=== PATIENT | female | born 1985 | race Caucasian/White ===

== ENCOUNTER 2018-02-15 12:35 | Inpatient (IN) ==
--- NOTE | 2018-02-15 13:14 | OB/GYN History & Physical ---
Date of Encounter: 02/15/18 Time of Encounter: 13:09 Assessment and Plan (1) 38 weeks gestation of Current visit: Yes Status: Acute Admit to L&D for IOL Cytotec 50mcg po CEFM GBS- Pain management plan: epidural LR at 125 ml/hr Dr. Schmitz is OB content manager and is available as needed. (2) Pre-eclampsia during in third trimester, antepartum Current visit: Yes Status: Acute Treat prn for bp>160/>110 History of Present Illness Chief complaint: elevated bp HPI: Ms. Hammond is a 32 year old female at 38 weeks 1 day gestation with an estimated date of of 02/28/18 dated by initial exam. She presents from the office with complaints of elevated blood pressures for the last 3 days. She states while at the [facility] office they noted her blood pressure was elevated in the 150s over 90s. Recommended that she begin to track her blood pressure at home. She did so over the next 3 days and has blood pressures as high as 150s over 110s. She denies headache, blurry vision, epigastric pain. She endorses good movement and denies contractions, leakage of fluid, vaginal bleeding. Her has been uncomplicated. She has been followed by the midwives. records are available electronically and have been reviewed. Labs: O- GBS- HIV- Hep B- GC/CL- T. Palladium- Rubella immune Varicella immune Past Med Surg Social Fam HX - Family History Father Living Status: Still Living Hx Family Cardiac Disorders: Yes (HTN) Obstetrical History - Pregnancies : 1 Para: 0 Term: 0 : 0 Ab's: 0 Livin Medications and Allergies Loratadine [Claritin] 10 mg PO 02/15/18 [History] One Daily Tablet 1 tab PO DAILY 02/15/18 [History] Zyrtec 1 tab PO DAILY 02/15/18 [History] 3 Allergy/AdvReac Type Severity Reaction Status Date / Time Amoxicillin Allergy Rash Verified 02/15/18 13:29 cephalexin [From Keflex] Allergy Difficulty Verified 02/15/18 13:29 Breathing Review of System OB All systems PM: reviewed and no additional remarkable complaints except as stated - Genitourinary Genitourinary: as per HPI - Integumentary Integumentary: as per HPI Exam - Constitutional Constitutional: well developed, well nourished, no acute distress, average body habitus - HEENT HEENT: PERRL, Normocephaly, Mucus Membranes Moist - Neck Neck exam: full ROM, normal inspection - Lungs Respiratory exam: CTAB - Cardiovascular Cardiovascular exam: RRR, +S1, +S2 - Breasts Breast: bilateral: normal - Abdomen Abdomen: Present: bowel sounds normal, gravid, non tender - Extremities Extremities exam: normal capillary refill, normal inspection, pedal edema, radial pulses palpable and symmetrical Deep Tendon Reflex Grade: 2+ Normal (DTR WNL/+2 beats clonus on left and +3 clonus on right) - Vulva Vulva: bilateral: normal - Uterus Uterus exam: Present: normal size, normal contour - Anus/Rectum Anus/Rectum: Present: normal perianal skin Results Result Diagrams: 02/15/18 13:15 02/15/18 13:15 All other labs normal. - VTE Reasons for not Prescribing Prophylaxis: Treatment not Indicated - Low risk for VTE
[2018-02-15 13:51] LABS: Basophils # 0.1 K/mcL (0.0-0.2); Basophils % 0.9 %; Eosinophils # 0.2 K/mcL (0.0-0.6); Eosinophils % 2.7 %; Hematocrit 40.1 % (35.3-44.9); Hemoglobin 14.1 g/dL (11.5-15.4); Immature Granulocytes % 0.9 % (0-4); Lymphocytes # 1.1 K/mcL (0.6-4.6); Lymphocytes % 15.5 %; Mean Corpuscular HGB Conc 35.2 g/dL (31.6-35.5); Mean Corpuscular Hemoglobin 30.7 pg (28.0-33.3); Mean Corpuscular Volume 87.2 fL (83.0-100.0); Mean Platelet Volume 12.9 fL (9.4-12.4); Monocytes # 0.8 K/mcL (0.0-1.3); Monocytes % 11.1 %; Neutrophils # 4.8 K/mcL (1.6-8.9); Platelet Count 143 K/mcL (140-400); Red Cell Distribution Width 13.3 % (11.5-14.5); Segmented Neutrophils % 68.9 %
[2018-02-15 14:01] LABS: Alanine Aminotransferase 14 Units/L (7-52); Aspartate Amino Transferase 20 Units/L (13-39); BUN/Creatinine Ratio 13 (6-26); Blood Urea Nitrogen 9 mg/dL (6-20); Lactate Dehydrogenase 155 Units/L (140-271); Uric Acid 8.7 mg/dL (2.3-7.6); eGFR For African Americans > 60 (> 60); eGFR For Non-African Americans > 60 (> 60)
[2018-02-15 14:44] LABS: Amphetamine Screen,Urine Negative ng/mL (Cutoff=1000); Barbiturate Screen,Urine Negative ng/mL (Cutoff=200); Benzodiazepines Screen,Urine Negative ng/mL (Cutoff=200); Cannabinoid Screen,Urine Negative ng/mL (Cutoff = 50); Cocaine Screen,Urine Negative ng/mL (Cutoff= 300); Opiate Screen,Urine Negative ng/mL (Cutoff=300); Phencyclidine Screen,Urine Negative ng/mL (Cutoff=25)
[2018-02-15 15:10] LABS: Protein/Creatinine Ratio,Urine 4.37 mg/mg (0.00-0.20)
[2018-02-15] MEDS ORDERED: miSOPROStol 25 MCG TABLET VG PRN (15:20)
[2018-02-15] MEDS ORDERED: Ondansetron 4 MG/2 ML VIAL IVP PRN (15:25)
[2018-02-15] MEDS ORDERED: Lidocaine 1% 20 ML MDV INFILT PRN (15:25)
[2018-02-15] MEDS ORDERED: Famotidine 20 MG/2 ML VIAL IVP PRN (15:25)
[2018-02-15] MEDS ORDERED: Metoclopramide 10 MG/2 ML VIAL IVP PRN (15:25)
[2018-02-15] MEDS ORDERED: Naloxone 0.4 MG/ML INJ IVP PRN (15:25)
[2018-02-15] MEDS ORDERED: *HR* Nalbuphine 10 MG/ML AMPUL IVP PRN (15:25)
[2018-02-15] MEDS ORDERED: *HR* Labetalol 20 MG/4 ML SYRINGE IVP ONE (16:00)
--- NOTE | 2018-02-15 20:23 | OB Labor Progress Note ---
Date of Encounter: 02/15/18 Time of Encounter: 20:20 Labor Progress Note - Subjective Subjective: Pt states she is feeling a few contractions here and there. - Cervix Cervix: FT/80/-2 - Heart Tones Heart Tones: Baseline 145 Moderate variability Accelerations present 15x15 No decelerations FHR Category I - [place]: Contractions every 2-3 minutes and palpate mild - Interventions Interventions: SVE Cuevas bulb Cytotec po x 1 - Plan Plan: Continue induction management May have nubain or epidural on request Frequent position changes Check cuevas bulb hourly Dr. Schmitz aware of POC and agrees
[2018-02-15] MEDS ORDERED: miSOPROStol 100 MCG TABLET PO ONE (20:37)
[2018-02-16] MEDS: Ringers Solution, Lactated 1,000 ML IVC SCH ×4 (02:43→20:00)
[2018-02-16] MEDS: Oxytocin 20 units/ LR 1000 mL 20 UNIT/1,000 ML BAG IVC SCH (02:45)
--- NOTE | 2018-02-16 05:07 | OB Labor Progress Note ---
Date of Encounter: 02/16/18 Time of Encounter: 05:05 Labor Progress Note - Subjective Subjective: Patient reports she is feeling some contractions now. Rates them at 3-4 out of 10 - Cervix Cervix: Espinoza bulb still in place - Heart Tones Heart Tones: Baseline 130 Moderate variability Accelerations present 15 x 15 No decelerations FHR category I - [place]: Contractions every 2 to 3-1/2 minutes and palpate mild to moderate - Interventions Interventions: Pulled on Espinoza bulb - Plan Plan: Continue induction management Frequent position changes Increase Pitocin Anticipate vaginal delivery
--- NOTE | 2018-02-16 08:01 | OB Labor Progress Note ---
Date of Encounter: 02/16/18 Time of Encounter: 07:59 Labor Progress Note - Subjective Subjective: Patient sitting up in bed. Denies any pain at this time. - Heart Tones Heart Tones: 125 bpm moderate variability +15x15 accels no decels noted. Cat. 1 tracing. - [place]: 1.5-3 min apart - Interventions Interventions: Discussed POC with patient. - Plan Plan: Continue labor management anticipate SVE
--- NOTE | 2018-02-16 09:58 | OB Labor Progress Note ---
Date of Encounter: 02/16/18 Time of Encounter: 09:55 Labor Progress Note - Subjective Subjective: Patient reports contractions are getting stronger. Discussed POC with patient. Patient denies any questions or concerns. - Cervix Cervix: 6/80/-2 - Heart Tones Heart Tones: 125 bpm moderate variability +15x15 accels no decels noted. Cat. 1 tracing - [place]: 2-3 min apart - Interventions Interventions: SVE, AROM large amount of clear fluid. IUPC placed without difficulty. Patient tolerated well. - Plan Plan: Continue labor management Epidural for pain management when desires anticipate
[2018-02-16] MEDS ORDERED: Naloxone 0.4 MG/ML INJ IVP PRN (10:21)
[2018-02-16] MEDS ORDERED: EPHEDrine 50 MG/ML VIAL IVP PRN (10:21)
[2018-02-16] MEDS ORDERED: Ondansetron 4 MG/2 ML VIAL IVP PRN (10:21)
[2018-02-16] MEDS ORDERED: *HR* FentaNYL (PF) 100 MCG/2 ML VIAL EP ONE (10:21)
[2018-02-16] MEDS ORDERED: Bupivacaine-MPF 0.25% 10 ML VIAL EP ONE (10:21)
[2018-02-16] MEDS ORDERED: Epidural Premix (fent/bupiv) 110 ML EP ONE (10:26)
[2018-02-16] MEDS ORDERED: Bupivacaine-MPF 0.25% 10 ML VIAL ONE (10:28)
[2018-02-16] MEDS ORDERED: Lidocaine -MPF 1% 5 ML AMPUL ONE (10:28)
[2018-02-16] MEDS ORDERED: *HR* FentaNYL (PF) 100 MCG/2 ML VIAL ONE (10:29)
[2018-02-16] MEDS ORDERED: Epidural Premix (fent/bupiv) 110 ML EP SCH (10:30)
--- NOTE | 2018-02-16 11:28 | Anesthesia Evaluation PreOp ---
Date of Encounter: 02/16/18 Time of Encounter: 10:35 - Past History Planned Operation: FRANCISCO JAVIER Cardiac History: Other ( induced hypertension) Pulmonary History: Denies Any Significant HX FOUNDER History: Denies Any Significant HX Other Medical History: Other (seasonal allergies) Anesthesia History: No Prior Anesthetic Complications, Past Anesthesia (No past anesthesia experiences, no family anesthesthetic related deaths) : Yes Alcohol Use: none Drug use: none Medications and Allergies Loratadine [Claritin] 10 mg PO 02/15/18 [History] One Daily Tablet 1 tab PO DAILY 02/15/18 [History] Zyrtec 1 tab PO DAILY 02/15/18 [History] 3 Allergy/AdvReac Type Severity Reaction Status Date / Time Amoxicillin Allergy Rash Verified 02/15/18 13:29 cephalexin [From Keflex] Allergy Difficulty Verified 02/15/18 13:29 Breathing - Meds/Allergy Pre-op Review Medications Reviewed: Yes Allergies Reviewed: Yes Beta Blockers on Current Med List: No If Beta Blockers taken, Date/Time (Last Dose taken): 02/15 1641 Anesthesia Results - Labs 02/15/18 13:15 02/15/18 13:15 Anesthesia Exam BP 160/91 R 18 P 88 T 97.5 Height: 5'9" Weight: 117.6kg NPO (# of Hours): over 24 hrs solids, clears 2hrs Pain Scale: 4 Pain Scale Used: Numeric (1 - 10) - HEENT Pupil (Motor): Pupils equal Mallampati: II Teeth: Normal Oral Opening: Greater than 3 - FOUNDER LOC: Oriented FOUNDER Motor: Normal RUE, Normal LUE, Normal RLE, Normal LLE, Normal Face FOUNDER Sensory: Normal: RUE, LUE, RLE, LLE, Face - Cardiac Rhythm: Regular Murmur: None JVD: No Carotid Bruit: No - Pulmonary Breath Sounds: bilateral Clear Respiratory Effort: Symmetrical Anesthesia Assess/Plan ASA Score: 2 Modified [place] Scale for Level of Consciousness: Cooperative, oriented, and tranquil Anesthetic Plan: Regional Autologous Blood: No Monitoring Plan: Standard Monitors Recovery Plan: Other
--- NOTE | 2018-02-16 11:33 | Anesthesia Procedures ---
Date of Encounter: 02/16/18 Time of Encounter: 10:35 Procedures: Anesthesia - Epidural/Spinal Patient ID/Chart reviewed: Yes Patient examined: Yes OB Eval: : 1 OB Eval: Hx Para: 0 OB Eval: Dilated at (cm): 6 OB Eval: Contractions: Non-stressed pattern Consent Obtained: Yes Supplemental Oxygen: None/Room Air Site Prep: Aseptic Technique, Sterile prep and drape, Povidone-Iodine 1% Patient position: upright Local Anesthetic: Lidocaine 1% Amount of Local Anesthetic used: 3 Touhy Needle Gauge: 18 Touhy Needle Depth (cm): 6 Catheter Depth at Skin (cm): 15 Test Dose (1.5% Lido + Epi): Volume given (mls): 3 Test Dose Result: Negative Loading Dose: 0.25% Marcaine (mls): 10 Loading Dose: Fentanyl (mcg): 100 Loading Dose Administered: Thru Catheter Infusion Med: 0.125% Bupivacaine w/ 2 mcg/ml Fentanyl Infusion Rate (mls/hr): [address]: Tegaderm, Tape Interspace Used: L4-L5 Blood: No CSF: No Paresthesia: No Procedure: FRANCISCO JAVIER placed 2nd pass successfully without any immediate noted complications. VSS and FHT stable throughout. Vitals + FHT's: 1035 BP 160/91 P 88 R 18 1120 BP 142/83 P 82 R 16 FHT 130s
--- NOTE | 2018-02-16 13:28 | OB Labor Progress Note ---
Date of Encounter: 02/16/18 Time of Encounter: 13:26 Labor Progress Note - Subjective Subjective: Patient resting comfortably with epidural in place. Espinoza catheter draining clear yellow urine. - Cervix Cervix: 6/80/-1 - Heart Tones Heart Tones: 140 bpm moderate amount of variability +15x15 accels no decels noted. Cat. 1 tracing - [place]: 2-3 min apart - Interventions Interventions: SVE, new IUPC placed without difficulty due to other not reading appropriately. - Plan Plan: Continue labor management
[2018-02-17] MEDS: Oxytocin 20 units/ LR 1000 mL 20 UNIT/1,000 ML BAG IVC SCH (04:33)
[2018-02-17] MEDS ORDERED: Clindamycin 900 MG/50 ML 900 MG/50 ML IV.SOLN IVPB SCH (08:00)
--- NOTE | 2018-02-17 09:41 | OB Labor Progress Note ---
Date of Encounter: 02/17/18 Time of Encounter: 09:39 Labor Progress Note - Subjective Subjective: Sitting in high fowlers. Patient states that she is comfortable - Vital Signs Vital Signs: VSS - Cervix Cervix: 8-9/100/+1 - Heart Tones Heart Tones: 140 - [place]: Contractions every 3-4 minutes - Plan Plan: Continue routine labor management GBS negative Ruptured > 24 hours, ABX started on previous shift Continue pitocin Anticipate vaginal delivery POC discussed with patient and Dr Schmitz at the same time.
[2018-02-17] MEDS ORDERED: *HR* Labetalol 20 MG/4 ML SYRINGE IVP ONE ×2 (10:53→11:01)
--- NOTE | 2018-02-17 14:02 | OB/GYN Procedure Note ---
Delivery - Delivery Date: 02/17/18 Provider: Jarrod Schmitz Intrapartum events: none Delivery induction: oxytocin, cuevas, misoprostol Delivery monitor: external FHT, internal uterine Anesthesia: epidural Quantitated Blood Loss: 250 - (s) Infant A Infant Delivery Date: 02/17/18 Infant Delivery Time: 13:37 Presentation: vertex Position: OA Route of delivery: Gender: Female Viability: Viable Pounds: 9 Ounces: 1 at 1 minute: 8 at 5 mins: 9 Shoulder Dystocia: encountered Shoulder Dystocia Maneuvers: Candace maneuver (6 sec shoulder dystocia encounterd relieved by downward traction and Candace maneuver) Specimens collected: cord blood Placenta: spontaneous Cord: nuchal cord, 3 umbilical vessels - Complications Delivery complications: none Delivery comments: Pt s/p of liveborn female with tight Nuchal cord x 1. was delivered through the cord, encountering a 6 sec dystocia relieved with downward traction and Candace presentation. was delivered from OA presentation. We had spontaneous delivery of normal intact placenta with 3 VC. 2nd degree laceration repaired with 3-0 Vicryl under epidural anesthesia. EBL 250 cc. Mother and infant recovered in LDR. - Disposition Mom disposition: stable in LDR Sparkman disposition: stable in LDR
[2018-02-17] MEDS ORDERED: Oxytocin 20 units/ LR 1000 mL 20 UNIT/1,000 ML BAG IVC ONE (16:29)
[2018-02-17] MEDS ORDERED: Oxytocin 20 units/ LR 1000 mL 20 UNIT/1,000 ML BAG IVC SCH (16:29)
[2018-02-17] MEDS ORDERED: Acetaminophen 325 MG TABLET PO PRN (16:29)
[2018-02-17] MEDS ORDERED: Measles/Mumps/Rubella Vacc 0.5 ML VIAL SQ PRN (16:29)
[2018-02-17] MEDS ORDERED: Sennosides 8.6 MG TABLET PO PRN (16:29)
[2018-02-17] MEDS ORDERED: Benzocaine/Menthol 56 GM AEROSOL SPRAY TP PRN (16:29)
[2018-02-17] MEDS ORDERED: Rho Immune Globulin 1,500 UNIT SYRINGE IM PRN (16:29)
[2018-02-17] MEDS ORDERED: NIFEdipine 10 MG CAPSULE PO ONE (18:41)
[2018-02-18 06:27] LABS: Basophils # 0.1 K/mcL (0.0-0.2); Basophils % 0.4 %; Eosinophils # 0.3 K/mcL (0.0-0.6); Eosinophils % 1.5 %; Hematocrit 32.7 % (35.3-44.9); Lymphocytes % 10.9 %; Mean Corpuscular HGB Conc 35.5 g/dL (31.6-35.5); Mean Corpuscular Hemoglobin 31.2 pg (28.0-33.3); Mean Corpuscular Volume 87.9 fL (83.0-100.0); Mean Platelet Volume 11.9 fL (9.4-12.4); Monocytes # 0.9 K/mcL (0.0-1.3); Monocytes % 4.7 %; Platelet Count 160 K/mcL (140-400); Red Blood Count 3.72 M/mcL (3.82-4.97); Red Cell Distribution Width 13.5 % (11.5-14.5); Segmented Neutrophils % 81.5 %
[2018-02-18 06:28] LABS: Hemoglobin 11.6 g/dL (11.5-15.4)
[2018-02-18 06:45] LABS: Alanine Aminotransferase 18 Units/L (7-52); Aspartate Amino Transferase 37 Units/L (13-39); BUN/Creatinine Ratio 14 (6-26); Blood Urea Nitrogen 13 mg/dL (6-20); Lactate Dehydrogenase 229 Units/L (140-271); Uric Acid 10.7 mg/dL (2.3-7.6); eGFR For African Americans > 60 (> 60); eGFR For Non-African Americans > 60 (> 60)
[2018-02-18] MEDS: Prenatal Vit/FA 1 EACH TABLET PO SCH (09:00)
[2018-02-18] MEDS: Ibuprofen 600 MG TABLET PO PRN ×2 (09:00→20:31)
--- NOTE | 2018-02-18 10:48 | OB/GYN Progress Note ---
Date of Encounter: 02/18/18 Time of Encounter: 10:46 - Assessment and Plan (1) Vaginal delivery Current Visit: Yes Status: Acute Continue routine care Ice to perineum as needed Sitz bath as needed dermoplast to perineum as needed Anticipate discharge to home tomorrow (2) Pre-eclampsia, Current Visit: Yes Status: Acute Increase labetalol to 200 mg twice a day PIH labs in the morning (3) Breast feeding status of mother Current Visit: Yes Status: Acute oim consultant as needed Subjective - Subjective Principal diagnosis: s/p Interval history: Feeling well. Out of bed without dizziness. Some perineal discomfort-using ice pack. Cramping minimal, using ibuprofen. Breast-feeding every 2-3 hours and feels is going well. Some nipple soreness. Voiding without difficulty. Passing flatus, no BM yet. Tolerating regular diet. Agreeable to stay another night for blood pressure regulation. Patient reports: appetite normal, voiding normally, pain well controlled, ambulating normally [place]: doing well, nursing well Objective - Latest Vital Signs Latest vital signs: Vital Signs Temp Pulse Resp BP Pulse Ox 02/18/18 08:16 16 02/18/18 05:18 98.1 F 82 16 142/87 97 02/18/18 00:17 98.0 F 92 18 114/72 97 02/17/18 21:07 98.1 F 93 16 149/93 97 02/17/18 19:19 85 144/91 02/17/18 19:02 97.9 F 87 12 143/92 97 02/17/18 18:41 98.0 F 92 18 182/123 98 02/17/18 17:45 98.1 F 88 12 155/95 99 02/17/18 16:45 98.3 F 83 14 165/105 96 Intake and Output 02/17/18 02/18/18 02/18/18 23:59 07:59 15:59 Intake Total 350 / 350 0 / 0 Output Total 675 / 675 250 / 250 Balance -325 / -325 -250 / -250 Intake: Oral 350 / 350 0 / 0 Output: Urine 675 / 675 250 / 250 Other: Meal Dinner Percent of Meal Consumed 80% Weight 118.8 kg 53.161 kg 115.3 kg Patient Weight 02/18/18 23:59 Weight 115.3 kg - Exam Lungs: bilateral: normal Chest: Normal S1, Normal S2 Extremities: Present: normal Abdomen: Present: normal appearance, soft Uterus: Present: normal, firm Uterus Position: At Umbilicus, Midline Comments: Breasts: Soft, nontender. Nipples intact without erythema. - Labs Labs: Laboratory Results - last 24 hr 02/17/18 02/18/18 02/18/18 14:18 06:16 06:16 WBC 18.4 H D RBC 3.72 L Hgb 11.6 D Hct 32.7 L MCV 87.9 MCH 31.2 MCHC 35.5 RDW 13.5 Plt Count 160 MPV 11.9 Immature Gran % 1.0 Seg Neutrophils % 81.5 Lymphocytes % 10.9 Monocytes % 4.7 Eosinophils % 1.5 Basophils % 0.4 Neutrophils # 15.0 H Lymphocytes # 2.0 Monocytes # 0.9 Eosinophils # 0.3 Basophils # 0.1 BUN 13 Creatinine 0.94 Est GFR ( Amer) > 60 Est GFR (Non-Af Amer) > 60 BUN/Creatinine Ratio 14 Uric Acid 10.7 H AST 37 ALT 18 Lactate Dehydrogenase 229 Screen NEGATIVE Baby's Blood Type A RH POSITIVE Mother's Blood Type O RH NEGATIVE Rhogam Indicated YES Rhogam Req for Mother 1
[2018-02-19 07:57] VITALS: BP 124/85
[2018-02-19] MEDS: Ibuprofen 600 MG TABLET PO PRN (08:07)
[2018-02-19] MEDS: Prenatal Vit/FA 1 EACH TABLET PO SCH (08:08)
[2018-02-19 08:43] LABS: Alanine Aminotransferase 18 Units/L (7-52); Aspartate Amino Transferase 30 Units/L (13-39); BUN/Creatinine Ratio 14 (6-26); Blood Urea Nitrogen 9 mg/dL (6-20); Lactate Dehydrogenase 207 Units/L (140-271); Uric Acid 10.3 mg/dL (2.3-7.6); eGFR For African Americans > 60 (> 60); eGFR For Non-African Americans > 60 (> 60)
--- NOTE | 2018-02-19 09:29 | Discharge Summary ---
Date of Encounter: 02/19/18 Time of Encounter: 09:26 - Discharge Diagnosis (1) Vaginal delivery Priority: Primary Status: Acute Comments: Doing well. Ambulating and voiding without difficulty. Tolerating regular diet well. Denies MYRICK, visual disturbance and epigastric pain. Lochia light and without clots. Mild abdominal cramping well controlled with Ibuprofen. Father of baby at bedside holding infant. States baby formula feeding well. Patient desires to go home today. (2) Pre-eclampsia, Priority: Secondary Status: Acute - Discharge Medications Prescriptions: Ibuprofen [Motrin] 600 mg PO Q6HR PRN #30 tablet PRN Reason: Cramping Breast Pump [BREAST PUMP] 1 each .ROUTE AD #1 each Docusate [Colace] 100 mg PO BID #20 capsule Labetalol [Trandate] 200 mg PO BID 30 Days #60 tablet Home Medications: Loratadine [Claritin] 10 mg PO 02/15/18 [History] One Daily Tablet 1 tab PO DAILY 02/15/18 [History] Zyrtec 1 tab PO DAILY 02/15/18 [History] Acetaminophen [Tylenol] 650 mg PO Q6HR PRN tablet 02/19/18 [Rx] Benzocaine/Menthol [place] [Dermoplast [place]] 1 appl TP QID PRN aerosol 02/19/18 [Rx] Breast Pump [BREAST PUMP] 1 each .ROUTE AD #1 each 02/19/18 [Rx] Docusate [Colace] 100 mg PO BID #20 capsule 02/19/18 [Rx] Ibuprofen [Motrin] 600 mg PO Q6HR PRN #30 tablet 02/19/18 [Rx] Labetalol [Trandate] 200 mg PO BID 30 Days #60 tablet 02/19/18 [Rx] Vit/FA 1 each PO DAILY tablet 02/19/18 [Rx] Allergies/Adverse Reactions: 3 Allergy/AdvReac Type Severity Reaction Status Date / Time Amoxicillin Allergy Rash Verified 02/15/18 13:29 cephalexin [From Keflex] Allergy Difficulty Verified 02/15/18 13:29 Breathing Data Procedures and tests throughout hospitalization: Laboratory Tests 02/15/18 02/15/18 02/15/18 13:15 13:15 13:15 WBC 6.9 RBC 4.60 Hgb 14.1 Hct 40.1 MCV 87.2 MCH 30.7 MCHC 35.2 RDW 13.3 Plt Count 143 MPV 12.9 H Immature Gran % 0.9 Seg Neutrophils % 68.9 Lymphocytes % 15.5 Monocytes % 11.1 Eosinophils % 2.7 Basophils % 0.9 Neutrophils # 4.8 Lymphocytes # 1.1 Monocytes # 0.8 Eosinophils # 0.2 Basophils # 0.1 BUN Creatinine Est GFR ( Amer) Est GFR (Non-Af Amer) BUN/Creatinine Ratio Uric Acid AST ALT Lactate Dehydrogenase Urine Creatinine 243 Protein/Creatinin Ratio 4.37 H Urine Total Protein 1061 H Urine Opiates Screen Negative Ur Barbiturates Screen Negative Ur Phencyclidine Scrn Negative Ur Amphetamines Screen Negative U Benzodiazepines Scrn Negative Urine Cocaine Screen Negative U Marijuana (THC) Screen Negative Ur Drug Screen Interp See Below Specimen Rejected Screen Baby's Blood Type Mother's Blood Type Rhogam Indicated Rhogam Req for Mother 02/15/18 02/17/18 02/18/18 13:15 14:18 06:16 WBC 18.4 H D RBC 3.72 L Hgb 11.6 D Hct 32.7 L MCV 87.9 MCH 31.2 MCHC 35.5 RDW 13.5 Plt Count 160 MPV 11.9 Immature Gran % 1.0 Seg Neutrophils % 81.5 Lymphocytes % 10.9 Monocytes % 4.7 Eosinophils % 1.5 Basophils % 0.4 Neutrophils # 15.0 H Lymphocytes # 2.0 Monocytes # 0.9 Eosinophils # 0.3 Basophils # 0.1 BUN 9 Creatinine 0.70 Est GFR ( Amer) > 60 Est GFR (Non-Af Amer) > 60 BUN/Creatinine Ratio 13 Uric Acid 8.7 H AST 20 ALT 14 Lactate Dehydrogenase 155 Urine Creatinine Protein/Creatinin Ratio Urine Total Protein Urine Opiates Screen Ur Barbiturates Screen Ur Phencyclidine Scrn Ur Amphetamines Screen U Benzodiazepines Scrn Urine Cocaine Screen U Marijuana (THC) Screen Ur Drug Screen Interp Specimen Rejected Screen NEGATIVE Baby's Blood Type A RH POSITIVE Mother's Blood Type O RH NEGATIVE Rhogam Indicated YES Rhogam Req for Mother 1 02/18/18 02/19/18 02/19/18 06:16 07:13 07:13 WBC RBC Hgb Hct MCV MCH MCHC RDW Plt Count MPV Immature Gran % Seg Neutrophils % Lymphocytes % Monocytes % Eosinophils % Basophils % Neutrophils # Lymphocytes # Monocytes # Eosinophils # Basophils # BUN 13 9 Creatinine 0.94 0.64 Est GFR ( Amer) > 60 > 60 Est GFR (Non-Af Amer) > 60 > 60 BUN/Creatinine Ratio 14 14 Uric Acid 10.7 H 10.3 H AST 37 30 ALT 18 18 Lactate Dehydrogenase 229 207 Urine Creatinine Protein/Creatinin Ratio Urine Total Protein Urine Opiates Screen Ur Barbiturates Screen Ur Phencyclidine Scrn Ur Amphetamines Screen U Benzodiazepines Scrn Urine Cocaine Screen U Marijuana (THC) Screen Ur Drug Screen Interp Specimen Rejected Miscellaneous Screen Baby's Blood Type Mother's Blood Type Rhogam Indicated Rhogam Req for Mother Labs on day of discharge: Labs from last 24 hours 02/19/18 02/19/18 02/17/18 07:13 07:13 14:18 BUN 9 Creatinine 0.64 Est GFR ( Amer) > 60 Est GFR (Non-Af Amer) > 60 BUN/Creatinine Ratio 14 Uric Acid 10.3 H AST 30 ALT 18 Lactate Dehydrogenase 207 Specimen Rejected Miscellaneous Screen NEGATIVE Baby's Blood Type A RH POSITIVE Mother's Blood Type O RH NEGATIVE Rhogam Indicated YES Rhogam Req for Mother 1 Date of admission: 02/15/18 12:35 Primary care physician: PCP NONE Consults: 02/17/18 16:29 Consult to [facility] [CONS] Routine Comment: Vaginal delivery, consult needed Discharging clinician: Angella Alexis Anticipated date of discharge: 02/12/18 - Patient Status Disposition: Home, Self-Care Condition: Good Functional capacity at discharge: independent ambulation Overall status at discharge: patient is progressing back to baseline - Discharge Instructions Instructions: Vaginal Delivery (DC) Follow Up With: Jarrod Schmitz MD [Partnered Physician] - Additional Instructions: Follow up in 1 week in office for BP check - Diet and Activity Activity: resume usual activities as tolerated Diet: regular diet Hospital Course Reason for admission: induction of labor, IUP at term Delivery: Episiotomy: none Laceration: 2nd degree Other procedures: none complications: none Discharge diagnosis: IUP at term delivered baby: female Time spent discussing smoking cessation with patient: 3 to 10 minutes Time Attestation: Total time spent providing and/or coordinating discharge services: Time Spent: Less than 30 minutes Exam - Constitutional Vitals: Temp Pulse Resp BP Pulse Ox 97.8 F 84 16 124/85 96 02/19/18 07:55 02/19/18 07:55 02/19/18 07:55 02/19/18 07:55 02/19/18 07:55 General appearance IM: cooperative, A&O X 3, pleasant, answers questions appropriately - Respiratory Respiratory exam: Present: CTAB - Cardiovascular Cardiovascular exam IM: Present: RRR - GI/Abdominal GI/Abdominal exam IM: normal bowel sounds - Rectal Rectal exam: deferred - Uterine Tone: Firm Uterus Position: At Umbilicus, Midline - Extremities Exam Extremities exam IM: Present: full ROM, pedal edema, radial pulses palpable and symmetrical Additional comments: +2 edema left lower extremity with 3 beats of clonus; +3 edema right lower extremity, no clonus. Reflexes +2 bilaterally. - Neurological Exam Neurological exam: alert, normal gait
[2018-02-19 10:25] LABS: Basophils % 0.4 %; Eosinophils # 0.3 K/mcL (0.0-0.6); Eosinophils % 2.7 %; Hematocrit 28.9 % (35.3-44.9); Hemoglobin 10.1 g/dL (11.5-15.4); Immature Granulocytes % 2.5 % (0-4); Lymphocytes % 18.1 %; Mean Corpuscular HGB Conc 34.9 g/dL (31.6-35.5); Mean Corpuscular Hemoglobin 31.2 pg (28.0-33.3); Mean Corpuscular Volume 89.2 fL (83.0-100.0); Mean Platelet Volume 11.8 fL (9.4-12.4); Monocytes # 0.6 K/mcL (0.0-1.3); Monocytes % 5.1 %; Neutrophils # 7.7 K/mcL (1.6-8.9); Nucleated Red Blood Cells 0.3 /100 WBC (0); Platelet Count 136 K/mcL (140-400); Red Blood Count 3.24 M/mcL (3.82-4.97); Red Cell Distribution Width 13.4 % (11.5-14.5); Segmented Neutrophils % 71.2 %
== END 2018-02-19 10:41 | disposition home or self-care (01) | DRG 774 ==
LOC: 1NENULAB → OBSVTOIN 12:35 → 1NENUOBS 02-17 16:28
PROVIDERS: ADMIT Obstetrics & Gynecology; ATTEND Obstetrics & Gynecology

== ENCOUNTER 2019-12-23 13:03 | Inpatient (IN) ==
[2019-12-23] MEDS ORDERED: Famotidine 20 MG/2 ML VIAL IVP PRN (13:22)
[2019-12-23] MEDS ORDERED: Metoclopramide 10 MG/2 ML VIAL IVP PRN ×2 (13:22→18:27)
[2019-12-23] MEDS ORDERED: Azithromycin 500 MG in 0.9 % Sodium Chloride 250 ML IVPB ONE (13:22)
[2019-12-23] MEDS ORDERED: Naloxone 0.4 MG/ML INJ IVP PRN (13:22)
[2019-12-23] MEDS ORDERED: Ringers Solution, Lactated 1,000 ML IVC ONE (13:23)
[2019-12-23] MEDS ORDERED: Clindamycin 900 MG/50 ML 900 MG/50 ML IV.SOLN IVPB ONE (13:24)
[2019-12-23] MEDS ORDERED: Ringers Solution, Lactated 1,000 ML IVC SCH ×2 (13:30→18:27)
[2019-12-23] MEDS ORDERED: *HR* Promethazine 25 MG/ML VIAL IVP PRN (14:04)
[2019-12-23] MEDS ORDERED: Ondansetron 4 MG/2 ML VIAL IVP ONE (14:04)
[2019-12-23] MEDS ORDERED: *HR* Labetalol 20 MG/4 ML SYRINGE IVP PRN (14:04)
[2019-12-23] MEDS ORDERED: *HR* OxyCODONE Immed Rel 5 MG TABLET PO PRN (14:04)
[2019-12-23] MEDS ORDERED: *HR* HYDROmorphone PF 0.5 MG/0.5 ML SYRINGE IVP PRN (14:04)
[2019-12-23 14:13] LABS: Amphetamine Screen,Urine Negative ng/mL (Cutoff=1000); Barbiturate Screen,Urine Negative ng/mL (Cutoff=200); Benzodiazepines Screen,Urine Negative ng/mL (Cutoff=200); Cannabinoid Screen,Urine Negative ng/mL (Cutoff = 50); Cocaine Screen,Urine Negative ng/mL (Cutoff= 300); Opiate Screen,Urine Negative ng/mL (Cutoff=300); Phencyclidine Screen,Urine Negative ng/mL (Cutoff=25)
[2019-12-23] MEDS ORDERED: *HR* Oxytocin 10 UNIT/ML VIAL IM ONE (14:13)
[2019-12-23] MEDS ORDERED: Ondansetron 4 MG/2 ML VIAL ONE (14:13)
[2019-12-23] MEDS ORDERED: EPHEDrine 50 MG/ML VIAL ONE (14:13)
[2019-12-23] MEDS ORDERED: *HR* Morphine Sulfate/PF 10 MG/10 ML AMPUL ONE (14:13)
[2019-12-23] MEDS ORDERED: *HR* FentaNYL (PF) 100 MCG/2 ML VIAL ONE (14:13)
[2019-12-23 14:14] LABS: Basophils % 0.5 %; Eosinophils # 0.1 K/mcL (0.0-0.6); Hematocrit 40.8 % (35.3-44.9); Hemoglobin 13.5 g/dL (11.5-15.4); Immature Granulocytes % 0.9 % (0-4); Lymphocytes # 1.3 K/mcL (0.6-4.6); Lymphocytes % 16.7 %; Mean Corpuscular HGB Conc 33.1 g/dL (31.6-35.5); Mean Corpuscular Hemoglobin 28.3 pg (28.0-33.3); Mean Corpuscular Volume 85.5 fL (83.0-100.0); Mean Platelet Volume 11.8 fL (9.4-12.4); Monocytes # 0.6 K/mcL (0.0-1.3); Monocytes % 7.8 %; Neutrophils # 5.6 K/mcL (1.6-8.9); Platelet Count 195 K/mcL (140-400); Red Blood Count 4.77 M/mcL (3.82-4.97); Red Cell Distribution Width 12.8 % (11.5-14.5); Segmented Neutrophils % 73.1 %; White Blood Count 7.7 K/mcL (4.3-11.1)
[2019-12-23] MEDS ORDERED: Acetaminophen IV 1,000 MG/100 ML INFUS..BTL ONE (14:34)
[2019-12-23] MEDS ORDERED: Ringers Solution, Lactated 1,000 ML ONE (15:30)
[2019-12-23] MEDS ORDERED: Oxytocin 20 units/ LR 1000 mL 20 UNIT/1,000 ML BAG IVC ONE (17:36)
[2019-12-23] MEDS ORDERED: Sennosides 8.6 MG TABLET PO PRN (18:27)
[2019-12-23] MEDS ORDERED: Ondansetron 4 MG/2 ML VIAL IVP PRN (18:27)
[2019-12-23] MEDS ORDERED: *HR* OxyCODONE/APAP 5/325 TABLET PO PRN (18:27)
[2019-12-23] MEDS ORDERED: Rho Immune Globulin 1,500 UNIT SYRINGE IM PRN (18:27)
[2019-12-23] MEDS ORDERED: Oxytocin 20 units/ LR 1000 mL 20 UNIT/1,000 ML BAG IVC SCH (18:27)
[2019-12-23] MEDS ORDERED: Simethicone 80 MG TAB.CHEW PO PRN (18:27)
[2019-12-23] MEDS: Oxytocin 20 units/ LR 1000 mL 20 UNIT/1,000 ML BAG IVC SCH (20:02)
[2019-12-23] MEDS: Ibuprofen 600 MG TABLET PO PRN (20:03)
[2019-12-24] MEDS: Ibuprofen 600 MG TABLET PO PRN ×4 (01:43→21:54)
[2019-12-24 05:11] LABS: Basophils # 0.1 K/mcL (0.0-0.2); Basophils % 0.7 %; Eosinophils # 0.2 K/mcL (0.0-0.6); Eosinophils % 2.1 %; Hematocrit 32.1 % (35.3-44.9); Immature Granulocytes % 0.9 % (0-4); Lymphocytes # 1.8 K/mcL (0.6-4.6); Lymphocytes % 26.1 %; Mean Corpuscular Hemoglobin 29.1 pg (28.0-33.3); Mean Corpuscular Volume 85.6 fL (83.0-100.0); Mean Platelet Volume 11.3 fL (9.4-12.4); Monocytes # 0.5 K/mcL (0.0-1.3); Monocytes % 7.4 %; Neutrophils # 4.4 K/mcL (1.6-8.9); Platelet Count 147 K/mcL (140-400); Red Blood Count 3.75 M/mcL (3.82-4.97); Segmented Neutrophils % 62.8 %
[2019-12-24 05:12] LABS: Hemoglobin 10.9 g/dL (11.5-15.4)
[2019-12-24] MEDS: Prenatal Vit/FA 1 EACH TABLET PO SCH (08:25)
[2019-12-24] MEDS: Oxytocin 20 units/ LR 1000 mL 20 UNIT/1,000 ML BAG IVC SCH (11:14)
[2019-12-25 07:34] VITALS: BP 119/68
[2019-12-25] MEDS: Prenatal Vit/FA 1 EACH TABLET PO SCH (08:22)
[2019-12-25] MEDS: Ibuprofen 600 MG TABLET PO PRN (08:22)
== END 2019-12-25 12:45 | disposition home or self-care (01) | DRG 788 ==
LOC: 1NENULAB 13:03 → 1NENUOBS 18:14
PROVIDERS: ADMIT Obstetrics & Gynecology; ATTEND Obstetrics & Gynecology